=== PATIENT | female | born 1965 | race Caucasian/White ===

== ENCOUNTER 2025-07-31 17:41 | Emergency (ER) | payer OTHER ==
[~2025-07-31] VITALS: Ht 167.6 cm; Wt 147.9 kg
[2025-07-31 17:48] VITALS: TEMP 98
[2025-07-31 18:28] LABS: PLATELET COUNT (AUTO) 331 K/uL (150-450); RED BLOOD CELL COUNT(AUTO) 5.33 MIL/uL (4.0-5.2); RED CELL DISTRIBUTION WIDTH 16.0 % (11.5-15.0); WHITE BLOOD COUNT (AUTO) 11.3 K/uL (4.3-11.0)
[2025-07-31 18:37] LABS: CALCIUM, SERUM 8.8 mg/dL (8.5-10.1); CREATININE 0.8 mg/dL (0.6-1.3); SODIUM SERUM 138.0 mmol/L (136-145); UREA NITROGEN, BLOOD 12.0 mg/dL (7-18)
[2025-07-31] MEDS: IV NS 0.9% 1,000 ML BAG IV ONE (18:43)
[2025-07-31 19:53] VITALS: BP 117/60; O2SAT 98
== END 2025-07-31 19:54 | disposition home or self-care (01) ==
LOC: ER 17:42
DX: R55 Syncope and collapse (principal)
CPT/HCPCS: 99285; 96360; 70450; 71045; 93005; 85025; 80048; 36415; J7030